=== PATIENT | male | born 1995 | race Caucasian/White ===

== ENCOUNTER 2021-10-21 14:56 | Emergency (ER) | payer OTHER ==
[2021-10-21 15:37] VITALS: BP 129/69; PULSE 62; RESP 20; TEMP 97.9; BMI 27.1
[2021-10-21] MEDS ORDERED: ACETAMINOPHEN 325 MG TABLET (FP) PO ONE (16:24)
[2021-10-21] MEDS ORDERED: ACETAMINOPHEN 325 MG TABLET (FP) ONE (16:31)
== END 2021-10-21 20:34 | disposition home or self-care (01) ==
LOC: JER 14:56
DX: S00.33XA Contusion of nose, initial encounter (principal); S09.93XA Unspecified injury of face, initial encounter
CPT/HCPCS: 70450-TC; 70486-TC; 99284-25